=== PATIENT | female | born 1980 | race Caucasian/White ===

== ENCOUNTER 2021-10-27 09:29 | Emergency (ER) | payer OTHER ==
[~2021-10-27] VITALS: Ht 170 cm; Wt 90.0 kg
[2021-10-27 09:41] VITALS: BP 145/89
--- NOTE | 2021-10-27 10:02 | ED Cough/URI ---
General Chief Complaint: COVID19 Suspect/Confirmed Stated Complaint: SORE THROAT,N/V,SOTOMAYOR,CP Nursing Triage Note: ARRIVED VIA AMB TO ROOM 10 WITH COMPLAINTS OF COUGH, VOMITING, AND SORE THROAT FOR X3 DAYS. HAS HAVE HAD A POSITIVE CONTACT. Source: patient Exam Limitations: no limitations History of Present Illness Date Seen by Provider: Oct 27, 2021 Time Seen by Provider: 09:48 Initial Comments Patient is a 41-year-old female who presents to the emergency room with a chief complaint of cough, subjective shortness of breath, nausea vomiting, sore throat upper respiratory congestion. Symptoms going on for about 2 to 3 days worse this morning. Only taking ibuprofen at home for her symptoms. She is a smoker. She is vaccinated with Pfizer back in the summer, has not had a booster. Does state that she had positive contact with sick coworkers in the last week. No pain in her legs or swelling in her calves. No chest pain. Does not take daily prescription medications All other review of systems reviewed and negative except as stated Timing/Duration: other (3 days) Severity/Quality: moderate Prior Episodes/Possible Cause: illness exposure Associated Symptoms: cough, fever/chills, headache, muscle aches, nasal congestion, nasal drainage, shortness of breath, sore throat Allergies and Home Medications Allergies Coded Allergies: No Known Drug Allergies (Unverified , 10/27/21) Patient Home Medication List Home Medication List Reviewed: Yes Review of Systems Review of Systems Constitutional: see HPI, fever, malaise EENTM: nose congestion, throat pain Respiratory: cough, short of breath Cardiovascular: no symptoms reported Gastrointestinal: diarrhea, nausea, vomiting Genitourinary: no symptoms reported : No Musculoskeletal: muscle cramps Skin: no symptoms reported Psychiatric/Neurological: Headache All Other Systems Reviewed Negative Unless Noted: Yes Past Xatgpnl-Qldark-Zctxow Hx Patient Social History Smoking Status: Current Everyday Smoker Substance use?: No Alcohol Use?: No Immunizations Up To Date Second COVID19 Vaccination Gwyn: 05/10 COVID19 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 oz. kg; 31.00 BMI Method: General Appearance: WD/WN, no apparent distress Eyes: Bilateral Eye Normal Inspection, Bilateral Eye PERRL, Bilateral Eye EOMI HEENT: PERRL/EOMI, TMs normal, pharynx normal, other (Nasal mucosal congestion) Neck: full range of motion, supple Respiratory: lungs clear, normal breath sounds, no respiratory distress, no accessory muscle use Cardiovascular: regular rate, rhythm Gastrointestinal: normal bowel sounds, non tender, soft Extremities: normal range of motion, non-tender, normal inspection, no pedal edema, no calf tenderness, normal capillary refill Neurologic/Psychiatric: alert, normal mood/affect, oriented x 3 Skin: normal color, warm/dry Progress/Results/Core Measures Suspected Sepsis SIRS Temperature: Pulse: 98 Respiratory Rate: 16 Blood Pressure 145 /89 Mean: 107 Results/Orders Lab Results Laboratory Tests Test 10/27/21 09:45 Range/Units Influenza Type A Antigen NEGATIVE NEGATIVE Influenza Type B Antigen NEGATIVE NEGATIVE SARS-CoV-2 RNA (RT-PCR) Positive H Negative My Orders Orders - CHRIS RICO MD Covid 19 Inhouse Test (10/27/21 09:53) Isolation Central Supply Req (10/27/21 09:53) Influenza A & B Antigens (10/27/21 09:53) Vital Signs/I&O 10/27/21 09:41 Temp 35.8 Pulse 98 Resp 16 B/P (MAP) 145/89 (107) Pulse Ox 97 O2 Delivery Room Air Capillary Refill : Less Than 3 Seconds Blood Pressure Mean: 107 Progress Note : Time: 10:48 Progress Note Notified by the lab of positive COVID results. Patient will be counseled on quarantine, [id number] medications, return precautions. Departure Impression Primary Impression: COVID-19 Disposition: 01 HOME, SELF-CARE Condition: Stable Departure-Patient Inst. Decision time for Depature: 10:01 Referrals: [facility] [place]O,LOCAL PHYSICIAN (PCP) Primary Care Physician Patient Instructions: COVID-19 ED Add. Discharge Instructions: Drink lots of fluids to stay well-hydrated. You can take uzck-qud-hdgagon DayQuil, NyQuil, Robitussin for cough/cold symptoms. Frpb-rkm-oqsbuqf ibuprofen, 3 tablets which is 600 mg every 6 hours with food for aches and pains and fever over 100.4. CDC Guidelines recommend quarantine 5 days after diagnosis with 5 days wearing a well-fitting mask to follow. Please follow up with the Health Department for an y further instructions. Return to the emergency department for worsening shortness of breath, vomiting or any other emergent concerning symptoms. Follow-up with your primary care doctor 2 weeks. Scripts Ondansetron (Ondansetron Odt) 4 Mg Tab.rapdis 4 MG PO Q8H PRN for nausea, #20 TAB Prov: CHRIS RICO MD 10/27/21 Work/School Note: Work Release Form Date Seen in the Emergency Department: Oct 27, 2021 Return to Work: Oct 31, 2021 Other Restrictions Listed Below: Out for Covid until 10/31/21 CHRIS RICO MD Oct 27, 2021 10:02
[2021-10-27] MEDS ORDERED: ONDA4TAB11 PO (11:13)
== END 2021-10-27 11:05 | disposition home or self-care (01) ==
LOC: ER 09:33
DX: U07.1 COVID-19 (principal); F17.290 Nicotine dependence, other tobacco product, uncomplicated
CPT/HCPCS: 87636; 87804; 99285